=== PATIENT | female | born 1985 | race Caucasian/White ===

== ENCOUNTER 2018-06-04 15:00 | Emergency (ER) | payer OTHER ==
[~2018-06-04] VITALS: Ht 154.9 cm; Wt 72.1 kg
[2018-06-04 15:42] LABS: BASOPHIL % 0.9 % (0-2); PLATELET COUNT 212 x10^3mcL (130-400)
[2018-06-04 15:43] LABS: CALCIUM 9.2 mg/dL (8.5-10.1); CARBON DIOXIDE 24.2 mmol/L (21-32); CHLORIDE SERUM 105 mmol/L (98-107); CREATININE SERUM 0.6 mg/dL (0.6-1.0); GFR1 > 60 mL/min; GLUCOSE SERUM 113 mg/dL (74-106); POTASSIUM SERUM 3.6 mmol/L (3.5-5.1); SODIUM SERUM 134 mmol/L (136-145)
[2018-06-04 15:57] LABS: FREE T4 0.85 ng/dL (0.76-1.46); FREE THYROXINE INDEX 2.2 ug/dL (1.4-4.5); T4(THYROXINE) 6.6 ug/dL (4.7-13.3)
[2018-06-04 16:09] LABS: T3 TOTAL 1.01 ng/mL
[2018-06-04 17:10] VITALS: BP 133/67
[2018-06-04 17:36] LABS: AMPHETAMINE QUAL UR NONE DETECTED (See below)
== END 2018-06-04 17:10 | disposition home or self-care (01) ==
LOC: ED 15:00
PROVIDERS: Emergency Medicine
DX: R00.2 Palpitations (principal); T88.7XXA Unspecified adverse effect of drug or medicament, initial encounter; R53.83 Other fatigue; Y92.89 Other specified places as the place of occurrence of the external cause
CPT/HCPCS: 84439; J7030; Q0092